=== PATIENT | male | born 1965 | race Caucasian/White ===

== ENCOUNTER 2019-02-01 10:09 | Emergency (ER) | payer OTHER ==
[2019-02-01] MEDS: KETOROLAC 60 MG INJ IM (11:21)
== END 2019-02-01 12:36 | disposition home or self-care (01) ==
LOC: FTE 10:09
DX: M79.605 Pain in left leg (principal); J45.909 Unspecified asthma, uncomplicated
CPT/HCPCS: 73590; 93971; 96372; 99285-25

== ENCOUNTER 2019-02-06 09:42 | Emergency (ER) | payer OTHER ==
[2019-02-06 11:32] LABS: ADD MAN DIFF? NO
[2019-02-06 11:33] LABS: WHITE BLOOD COUNT 5.4 10^3/ul (4.8-10.8)
[2019-02-06 11:33] LABS: BASOPHILS % 0.6 % (0.0-2.0); EOSINOPHILS # 0.2 10^3/ul (0.0-0.5); EOSINOPHILS % 3.5 % (0.0-7.0); HEMATOCRIT 45.9 % (42.0-52.0); HEMOGLOBIN 15.4 g/dl (14.0-18.0); LYMPHOCYTES # 1.2 10^3/ul (0.8-2.9); LYMPHOCYTES % 22.3 % (15.0-51.0); MEAN CORPUSCULAR HEMOGLOBIN 30.7 pg (29.0-33.0); MEAN CORPUSCULAR HGB CONC 33.6 g/dl (32.0-37.0); MEAN CORPUSCULAR VOLUME 91.4 fl (82.0-101.0); MONOCYTE # 0.4 10^3/ul (0.3-0.9); NEUTROPHIL # 3.5 10^3/ul (1.6-7.5); NEUTROPHILS % 65.2 % (39.0-77.0); PLATELET COUNT 296 10^3/UL (140-415); RED BLOOD COUNT 5.02 10^6/ul (4.70-6.10); RED CELL DISTRIBUTION WIDTH 12.9 % (11.5-14.5)
[2019-02-06 11:44] LABS: ADD UMIC NO; UR ASCORBIC ACID NEGATIVE (NEGATIVE); UR BILIRUBIN (Dip) NEGATIVE (NEGATIVE); UR BLOOD (Dip) NEGATIVE (NEGATIVE); UR CLARITY CLEAR (CLEAR); UR COLOR YELLOW (YELLOW); UR GLUCOSE (Dip) NEGATIVE (NEGATIVE); UR KETONES (Dip) NEGATIVE (NEGATIVE); UR LEUKOCYTE ESTERASE (Dip) NEGATIVE Leu/ul (NEGATIVE); UR NITRITE (Dip) NEGATIVE (NEGATIVE); UR TOTAL PROTEIN (Dip) NEGATIVE (NEGATIVE); UR UROBILINOGEN (Dip) NEGATIVE (NEGATIVE)
[2019-02-06 11:54] LABS: ALANINE AMINOTRANSFERASE 27 IU/L (13-69); ALBUMIN 4.1 g/dl (3.3-4.9); ALBUMIN/GLOBULIN RATIO 1.41; ALKALINE PHOSPHATASE 65 IU/L (42-121); ANION GAP 3 (5-13); ASPARTATE AMINO TRANSFERASE 25 IU/L (15-46); BILIRUBIN,INDIRECT 0.5 mg/dl (0-1.1); BILIRUBIN,TOTAL 0.5 mg/dl (0.2-1.3); BLOOD UREA NITROGEN 16 mg/dl (7-20); CALCIUM 9.6 mg/dl (8.4-10.2); CARBON DIOXIDE 32 mmol/L (21-31); CHLORIDE 106 mmol/L (97-110); CREATINE KINASE 93 IU/L (23-200); CREATININE 0.91 mg/dl (0.61-1.24); Estimated GFR > 60 mL/min (>60); GLUCOSE 80 mg/dl (70-220); POTASSIUM 4.8 mmol/L (3.5-5.1); SODIUM 141 mmol/L (135-144)
[2019-02-06 11:55] LABS: URIC ACID 4.3 mg/dl (3.1-7.9)
[2019-02-06] MEDS: KETOROLAC 60 MG INJ IM (12:11)
== END 2019-02-06 12:25 | disposition home or self-care (01) ==
LOC: FTE 09:42
DX: M79.605 Pain in left leg (principal); J45.909 Unspecified asthma, uncomplicated; M54.32 Sciatica, left side
CPT/HCPCS: 36415; 80053; 81003; 82550; 84560; 85025; 96372; 99284-25